=== PATIENT | male | born 1980 | race Two or more races ===

== ENCOUNTER 2020-10-30 23:41 | Emergency (ER) | payer OTHER ==
[~2020-10-30] VITALS: Ht 188 cm; Wt 68.0 kg
--- NOTE | 2020-10-30 23:58 | NUR ---
PT [facility]IBRA [employer] AND [facility]CO FOR "MY L WRIST IS BROKEN" IN [employer]ODY. PT ALERT AND ORIENTED X3, WITH SPONTANEOUS NON LABORED BREATHING.
--- NOTE | 2020-10-31 01:20 | NUR ---
Patient discharged in custody in stable condition. Written and verbal after care instructions given. Patient verbalizes understanding of instruction. Pt Refused to sign discharge papers, officer signed as a witness.
[2020-10-31 01:21] VITALS: BP 120/70
== END 2020-10-31 01:22 ==
LOC: ER 10-31 00:35
DX: S63.592A Other specified sprain of left wrist, initial encounter (principal); F17.200 Nicotine dependence, unspecified, uncomplicated; J45.909 Unspecified asthma, uncomplicated; Z90.89 Acquired absence of other organs; X58.XXXA Exposure to other specified factors, initial encounter; Y93.89 Activity, other specified; Y92.89 Other specified places as the place of occurrence of the external cause; Y99.8 Other external cause status
CPT/HCPCS: 73110

== ENCOUNTER 2020-11-01 09:49 | Emergency (ER) | payer OTHER ==
[~2020-11-01] VITALS: Ht 188 cm; Wt 70.3 kg
[2020-11-01 09:56] VITALS: BP 116/76
--- NOTE | 2020-11-01 10:07 | NUR ---
SEEN AND EXAMINED BY DR MAGUIRE. MEDICALLY CLEARED. DISCHARGED TO PD IN STABLE CONDITION.
== END 2020-11-01 10:17 | disposition home or self-care (01) ==
LOC: ER 09:51
DX: M25.552 Pain in left hip (principal); G89.29 Other chronic pain; M54.5 Low back pain; J45.909 Unspecified asthma, uncomplicated; F17.200 Nicotine dependence, unspecified, uncomplicated; Z90.89 Acquired absence of other organs